=== PATIENT | female | born 1990 | race Caucasian/White ===

== ENCOUNTER 2017-10-18 21:03 | Emergency (ER) | payer OTHER ==
[2017-10-19] MEDS: SOD CHLORIDE 0.9% 1,000 ML IV (00:22)
[2017-10-19 00:28] LABS: ADD MAN DIFF? NO
[2017-10-19 00:29] LABS: ADD UMIC NO; UR ASCORBIC ACID NEGATIVE (NEGATIVE); UR BILIRUBIN (Dip) NEGATIVE (NEGATIVE); UR BLOOD (Dip) NEGATIVE (NEGATIVE); UR CLARITY CLEAR (CLEAR); UR COLOR YELLOW (YELLOW); UR GLUCOSE (Dip) NEGATIVE (NEGATIVE); UR KETONES (Dip) NEGATIVE (NEGATIVE); UR LEUKOCYTE ESTERASE (Dip) NEGATIVE Leu/ul (NEGATIVE); UR NITRITE (Dip) NEGATIVE (NEGATIVE); UR SPECIFIC GRAVITY (Dip) 1.011 (1.003-1.030); UR TOTAL PROTEIN (Dip) NEGATIVE (NEGATIVE); UR UROBILINOGEN (Dip) NEGATIVE (NEGATIVE)
[2017-10-19 00:33] LABS: BASOPHIL # 0.1 10^3/ul (0.0-0.1); BASOPHILS % 0.3 % (0.0-2.0); EOSINOPHILS # 0.4 10^3/ul (0.0-0.5); EOSINOPHILS % 2.4 % (0.0-7.0); HEMATOCRIT 44.3 % (37.0-47.0); HEMOGLOBIN 14.6 g/dl (12.0-16.0); LYMPHOCYTES # 4.6 10^3/ul (0.8-2.9); LYMPHOCYTES % 31.1 % (15.0-51.0); MEAN CORPUSCULAR HEMOGLOBIN 27.5 pg (29.0-33.0); MEAN CORPUSCULAR VOLUME 83.6 fl (82.0-101.0); MEAN PLATELET VOLUME 10.7 fl (7.4-10.4); MONOCYTE # 0.8 10^3/ul (0.3-0.9); MONOCYTES % 5.6 % (0.0-11.0); NEUTROPHIL # 8.9 10^3/ul (1.6-7.5); NEUTROPHILS % 60.3 % (39.0-77.0); PLATELET COUNT 301 10^3/UL (140-415); RED CELL DISTRIBUTION WIDTH 12.8 % (11.5-14.5)
[2017-10-19 00:33] LABS: WHITE BLOOD COUNT 14.7 10^3/ul (4.8-10.8)
== END 2017-10-19 02:21 | disposition home or self-care (01) ==
LOC: FTE 21:03
DX: O20.0 Threatened abortion (principal); Z3A.01 Less than 8 weeks gestation of pregnancy
CPT/HCPCS: 36415; 76801; 81003; 84702; 85025; 86900; 86901; 99285-25

== ENCOUNTER 2017-10-19 22:38 | Emergency (ER) | payer OTHER ==
[2017-10-20 01:37] LABS: ADD MAN DIFF? NO
[2017-10-20 01:40] LABS: WHITE BLOOD COUNT 13.3 10^3/ul (4.8-10.8)
[2017-10-20 01:40] LABS: BASOPHIL # 0.1 10^3/ul (0.0-0.1); BASOPHILS % 0.4 % (0.0-2.0); EOSINOPHILS # 0.4 10^3/ul (0.0-0.5); HEMATOCRIT 41.3 % (37.0-47.0); HEMOGLOBIN 13.9 g/dl (12.0-16.0); LYMPHOCYTES # 3.8 10^3/ul (0.8-2.9); LYMPHOCYTES % 28.4 % (15.0-51.0); MEAN CORPUSCULAR HEMOGLOBIN 28.1 pg (29.0-33.0); MEAN CORPUSCULAR HGB CONC 33.7 g/dl (32.0-37.0); MEAN CORPUSCULAR VOLUME 83.6 fl (82.0-101.0); MEAN PLATELET VOLUME 10.8 fl (7.4-10.4); MONOCYTE # 0.9 10^3/ul (0.3-0.9); MONOCYTES % 6.7 % (0.0-11.0); NEUTROPHIL # 8.2 10^3/ul (1.6-7.5); NEUTROPHILS % 61.3 % (39.0-77.0); PLATELET COUNT 288 10^3/UL (140-415); RED BLOOD COUNT 4.94 10^6/ul (4.20-5.40); RED CELL DISTRIBUTION WIDTH 12.6 % (11.5-14.5)
== END 2017-10-20 04:16 | disposition home or self-care (01) ==
LOC: FTE 22:38
DX: O20.0 Threatened abortion (principal); R10.2 Pelvic and perineal pain; Z3A.01 Less than 8 weeks gestation of pregnancy
CPT/HCPCS: 36415; 76801; 84702; 85025; 99284-25

== ENCOUNTER 2017-12-26 19:20 | Emergency (ER) | payer MEDICAID, OTHER ==
[2017-12-26] MEDS: METOCLOPRAMIDE 10 MG TAB PO (21:48)
[2017-12-26] MEDS: SOD CHLORIDE 0.9% 1,000 ML IV (21:49)
[2017-12-26 21:53] LABS: ADD UMIC NO; UR ASCORBIC ACID 20 mg/dL (NEGATIVE); UR BILIRUBIN (Dip) NEGATIVE (NEGATIVE); UR BLOOD (Dip) NEGATIVE (NEGATIVE); UR CLARITY CLEAR (CLEAR); UR COLOR YELLOW (YELLOW); UR GLUCOSE (Dip) NEGATIVE (NEGATIVE); UR KETONES (Dip) NEGATIVE (NEGATIVE); UR LEUKOCYTE ESTERASE (Dip) NEGATIVE Leu/ul (NEGATIVE); UR NITRITE (Dip) NEGATIVE (NEGATIVE); UR SPECIFIC GRAVITY (Dip) 1.009 (1.003-1.030); UR TOTAL PROTEIN (Dip) NEGATIVE (NEGATIVE); UR UROBILINOGEN (Dip) NEGATIVE (NEGATIVE)
[2017-12-26 22:16] LABS: ADD MAN DIFF? NO
[2017-12-26 22:22] LABS: WHITE BLOOD COUNT 13.1 10^3/ul (4.8-10.8)
[2017-12-26 22:22] LABS: BASOPHIL # 0.1 10^3/ul (0.0-0.1); BASOPHILS % 0.4 % (0.0-2.0); EOSINOPHILS # 0.3 10^3/ul (0.0-0.5); EOSINOPHILS % 2.6 % (0.0-7.0); HEMATOCRIT 36.9 % (37.0-47.0); HEMOGLOBIN 12.6 g/dl (12.0-16.0); LYMPHOCYTES # 3.2 10^3/ul (0.8-2.9); LYMPHOCYTES % 24.4 % (15.0-51.0); MEAN CORPUSCULAR HEMOGLOBIN 28.3 pg (29.0-33.0); MEAN CORPUSCULAR HGB CONC 34.1 g/dl (32.0-37.0); MEAN CORPUSCULAR VOLUME 82.9 fl (82.0-101.0); MEAN PLATELET VOLUME 11.3 fl (7.4-10.4); MONOCYTE # 0.9 10^3/ul (0.3-0.9); NEUTROPHIL # 8.6 10^3/ul (1.6-7.5); NEUTROPHILS % 65.2 % (39.0-77.0); PLATELET COUNT 284 10^3/UL (140-415); RED BLOOD COUNT 4.45 10^6/ul (4.20-5.40); RED CELL DISTRIBUTION WIDTH 13.4 % (11.5-14.5)
[2017-12-26 22:36] LABS: ALANINE AMINOTRANSFERASE 24 IU/L (13-69); ALBUMIN 3.7 g/dl (3.3-4.9); ALBUMIN/GLOBULIN RATIO 1.12; ALKALINE PHOSPHATASE 73 IU/L (42-121); ANION GAP 14 (8-16); ASPARTATE AMINO TRANSFERASE 18 IU/L (15-46); BILIRUBIN,INDIRECT 0.3 mg/dl (0-1.1); BILIRUBIN,TOTAL 0.3 mg/dl (0.2-1.3); BLOOD UREA NITROGEN 5 mg/dl (7-20); CALCIUM 9.3 mg/dl (8.4-10.2); CARBON DIOXIDE 24 mmol/L (21-31); CHLORIDE 104 mmol/L (97-110); CREATININE 0.44 mg/dl (0.44-1.00); GLUCOSE 84 mg/dl (70-220); POTASSIUM 4.1 mmol/L (3.5-5.1); SODIUM 138 mmol/L (135-144)
== END 2017-12-26 23:05 | disposition home or self-care (01) ==
LOC: FTE 19:20
DX: O99.282 Endocrine, nutritional and metabolic diseases complicating pregnancy, second trimester (principal); E86.0 Dehydration; Z3A.17 17 weeks gestation of pregnancy
CPT/HCPCS: 36415; 76805; 80053; 81003; 85025; 99285-25

== ENCOUNTER 2018-01-25 12:14 | Inpatient (IN) | payer OTHER ==
[2018-01-25] MEDS ORDERED: ONDANSETRON 4 MG INJ IV (14:00)
[2018-01-25] MEDS: LACTATED RINGER'S 1,000 ML IV (15:24)
[2018-01-25] MEDS: MAGNESIUM SULFATE 4 GM/100 ML 100 ML IV (15:30)
[2018-01-25] MEDS: TERBUTALINE 1 MG/ML INJ SC (15:32)
[2018-01-25 15:56] LABS: ADD MAN DIFF? NO
[2018-01-25 15:58] LABS: BASOPHILS % 0.2 % (0.0-2.0); EOSINOPHILS # 0.2 10^3/ul (0.0-0.5); EOSINOPHILS % 1.9 % (0.0-7.0); HEMATOCRIT 36.1 % (37.0-47.0); HEMOGLOBIN 12.2 g/dl (12.0-16.0); LYMPHOCYTES # 2.2 10^3/ul (0.8-2.9); LYMPHOCYTES % 19.9 % (15.0-51.0); MEAN CORPUSCULAR HEMOGLOBIN 28.8 pg (29.0-33.0); MEAN CORPUSCULAR HGB CONC 33.8 g/dl (32.0-37.0); MEAN CORPUSCULAR VOLUME 85.1 fl (82.0-101.0); MEAN PLATELET VOLUME 11.1 fl (7.4-10.4); MONOCYTE # 0.4 10^3/ul (0.3-0.9); MONOCYTES % 3.5 % (0.0-11.0); NEUTROPHIL # 8.1 10^3/ul (1.6-7.5); PLATELET COUNT 256 10^3/UL (140-415); RED BLOOD COUNT 4.24 10^6/ul (4.20-5.40); RED CELL DISTRIBUTION WIDTH 13.5 % (11.5-14.5)
[2018-01-25] MEDS: MAGNESIUM SULFATE 20 GM/500 ML 500 ML IV (16:02)
[2018-01-25 19:54] LABS: ADD UMIC NO; UR ASCORBIC ACID NEGATIVE (NEGATIVE); UR BILIRUBIN (Dip) NEGATIVE (NEGATIVE); UR BLOOD (Dip) NEGATIVE (NEGATIVE); UR CLARITY CLEAR (CLEAR); UR COLOR STRAW (YELLOW); UR GLUCOSE (Dip) NEGATIVE (NEGATIVE); UR KETONES (Dip) NEGATIVE (NEGATIVE); UR LEUKOCYTE ESTERASE (Dip) NEGATIVE Leu/ul (NEGATIVE); UR NITRITE (Dip) NEGATIVE (NEGATIVE); UR SPECIFIC GRAVITY (Dip) 1.008 (1.003-1.030); UR TOTAL PROTEIN (Dip) NEGATIVE (NEGATIVE); UR UROBILINOGEN (Dip) NEGATIVE (NEGATIVE)
[2018-01-25 21:23] LABS: AMPHETAMINE/METHAMPHETAMINE Negative (NEGATIVE); BARBITURATES Negative (NEGATIVE); BENZODIAZEPINES Negative (NEGATIVE); CANNABINOIDS Negative (NEGATIVE); COCAINE Negative (NEGATIVE); OPIATES Negative (NEGATIVE)
[2018-01-25] MEDS: INDOMETHACIN 25 MG PO (21:32)
[2018-01-25] MEDS: PROGESTERONE 100 MG CAP VAG (21:55)
[2018-01-26] MEDS: LACTATED RINGER'S 1,000 ML IV ×2 (00:13→12:20)
[2018-01-26] MEDS: INDOMETHACIN 25 MG PO ×4 (02:01→18:13)
[2018-01-26] MEDS: MAGNESIUM SULFATE 20 GM/500 ML 500 ML IV ×2 (02:09→12:23)
[2018-01-26] MEDS: ACETAMINOPHEN 325 MG TAB PO (02:14)
[2018-01-26 07:05] LABS: MAGNESIUM 5.3 mg/dl (1.7-2.5)
[2018-01-26] MEDS: PRENATAL VITAMIN PO (09:23)
[2018-01-26 13:24] LABS: MAGNESIUM 5.1 mg/dl (1.7-2.5)
[2018-01-26] MEDS: NIFEdipine 10 MG CAP PO (19:18)
[2018-01-26 19:56] LABS: MAGNESIUM 5.3 mg/dl (1.7-2.5)
[2018-01-26] MEDS: PROGESTERONE 100 MG CAP VAG (21:02)
[2018-01-27] MEDS: LACTATED RINGER'S 1,000 ML IV ×3 (00:27→08:29)
[2018-01-27] MEDS: INDOMETHACIN 25 MG PO ×3 (00:28→12:10)
[2018-01-27] MEDS: NIFEdipine 10 MG CAP PO ×3 (00:28→12:11)
[2018-01-27] MEDS: PRENATAL VITAMIN PO (09:10)
== END 2018-01-27 17:00 | disposition home or self-care (01) | DRG 782 ==
LOC: OBT 12:14 → L-D 12:15 → OBT 13:50 → L-D 13:50
PROVIDERS: Obstetrics & Gynecology
DX: O26.872 Cervical shortening, second trimester (principal); Z3A.21 21 weeks gestation of pregnancy
CPT/HCPCS: 76817; 80307; 81003; 83735; 85025; 87086

== ENCOUNTER 2018-02-04 18:17 | Inpatient (IN) | payer OTHER ==
[2018-02-04 20:39] LABS: ADD UMIC YES; UR ASCORBIC ACID 40 mg/dL (NEGATIVE); UR BILIRUBIN (Dip) NEGATIVE (NEGATIVE); UR BLOOD (Dip) NEGATIVE (NEGATIVE); UR CLARITY CLOUDY (CLEAR); UR COLOR YELLOW (YELLOW); UR GLUCOSE (Dip) NEGATIVE (NEGATIVE); UR KETONES (Dip) NEGATIVE (NEGATIVE); UR LEUKOCYTE ESTERASE (Dip) 3+ Leu/ul (NEGATIVE); UR MUCUS FEW /HPF (NONE SEEN); UR NITRITE (Dip) NEGATIVE (NEGATIVE); UR RBC 11 /HPF (0-5); UR SPECIFIC GRAVITY (Dip) 1.014 (1.003-1.030); UR SQUAMOUS EPITHELIAL CELL MODERATE /HPF (FEW); UR TOTAL PROTEIN (Dip) NEGATIVE (NEGATIVE); UR UROBILINOGEN (Dip) NEGATIVE (NEGATIVE); UR WBC 26 /HPF (0-5)
[2018-02-05] MEDS: MAGNESIUM SULFATE 4 GM/100 ML 100 ML IV (00:51)
[2018-02-05] MEDS: INDOMETHACIN 25 MG PO ×4 (02:01→19:43)
[2018-02-05] MEDS: MAGNESIUM SULFATE 20 GM/500 ML 500 ML IV ×3 (02:37→21:22)
[2018-02-05] MEDS: LACTATED RINGER'S 1,000 ML IV ×2 (02:39→18:24)
[2018-02-05] MEDS: AMPICILLIN 2 GM/NS (PMX) 100 ML IV (02:39)
[2018-02-05] MEDS: AMPICILLIN 1 GM/NS (PMX) 50 ML IV ×6 (03:30→23:46)
[2018-02-05 06:50] LABS: MAGNESIUM 4.5 mg/dl (1.7-2.5)
[2018-02-05] MEDS: DOCUSATE SODIUM 100 MG CAP PO (09:00)
[2018-02-05] MEDS: PRENATAL VITAMIN PO (09:00)
[2018-02-05] MEDS: CLOTRIMAZOLE 1% 30 GM CR TOP (09:00)
[2018-02-05] MEDS: BETAMET NA PHOS/AC(6 MG/ML) 5ML INJ IM (11:21)
[2018-02-05 12:24] LABS: MAGNESIUM 4.7 mg/dl (1.7-2.5)
[2018-02-05] MEDS: TERBUTALINE 1 MG/ML INJ SC (16:15)
[2018-02-05 18:08] LABS: MAGNESIUM 5.2 mg/dl (1.7-2.5)
[2018-02-05] MEDS ORDERED: CLOTRIMAZOLE 1% 45 GM VAG CR VAG (21:00)
[2018-02-05] MEDS ORDERED: PROGESTERONE 100 MG CAP VAG (21:00)
[2018-02-06] MEDS: INDOMETHACIN 25 MG PO ×4 (00:42→18:25)
[2018-02-06 01:51] LABS: MAGNESIUM 5.2 mg/dl (1.7-2.5)
[2018-02-06] MEDS: AMPICILLIN 1 GM/NS (PMX) 50 ML IV ×4 (03:38→15:25)
[2018-02-06] MEDS: LACTATED RINGER'S 1,000 ML IV ×3 (04:10→23:19)
[2018-02-06] MEDS: MAGNESIUM SULFATE 20 GM/500 ML 500 ML IV ×2 (06:33→17:04)
[2018-02-06 07:19] LABS: MAGNESIUM 5.4 mg/dl (1.7-2.5)
[2018-02-06] MEDS ORDERED: TERBUTALINE 1 MG/ML INJ SC (09:00)
[2018-02-06] MEDS: DOCUSATE SODIUM 100 MG CAP PO (09:34)
[2018-02-06] MEDS: PRENATAL VITAMIN PO (09:34)
[2018-02-06] MEDS: BETAMET NA PHOS/AC(6 MG/ML) 5ML INJ IM (11:11)
[2018-02-06] MEDS ORDERED: MAGNESIUM HYDROXIDE 30ML CUP PO (16:00)
[2018-02-06] MEDS ORDERED: SENNA TAB PO (16:00)
[2018-02-06 16:28] LABS: MAGNESIUM 5.2 mg/dl (1.7-2.5)
[2018-02-07] MEDS: INDOMETHACIN 25 MG PO ×5 (00:04→23:41)
[2018-02-07] MEDS: MAGNESIUM SULFATE 20 GM/500 ML 500 ML IV ×4 (00:43→21:41)
[2018-02-07 01:42] LABS: MAGNESIUM 5.4 mg/dl (1.7-2.5)
[2018-02-07 06:58] LABS: MAGNESIUM 5.3 mg/dl (1.7-2.5)
[2018-02-07] MEDS: PRENATAL VITAMIN PO (09:15)
[2018-02-07] MEDS: SENNA TAB PO (09:16)
[2018-02-07] MEDS: MAGNESIUM HYDROXIDE 30ML CUP PO (09:22)
[2018-02-07] MEDS: LACTATED RINGER'S 1,000 ML IV (11:58)
[2018-02-07 13:06] LABS: MAGNESIUM 4.7 mg/dl (1.7-2.5)
[2018-02-07 18:33] LABS: MAGNESIUM 4.8 mg/dl (1.7-2.5)
[2018-02-07] MEDS ORDERED: TERBUTALINE 1 ML (19:05)
[2018-02-07] MEDS: TERBUTALINE 1 MG/ML INJ SC (19:12)
[2018-02-08] MEDS: CEFAZOLIN 2 GM/50 ML (PMX) 50 ML IVPB ×2 (00:30→16:21)
[2018-02-08] MEDS ORDERED: FENTAnyl 50 MCG/ML VIAL (01:29)
[2018-02-08] MEDS ORDERED: ONDANSETRON 4 MG INJ (01:29)
[2018-02-08] MEDS ORDERED: morphine SULFATE/PF (10 MG/10 ML) INJ (01:35)
[2018-02-08] MEDS: ONDANSETRON 4 MG INJ IV (02:20)
[2018-02-08] MEDS ORDERED: FENTAnyl 50 MCG/ML VIAL IV (02:30)
[2018-02-08] MEDS ORDERED: HYDROmorphONE 1 MG/5 ML IV SYRINGE IV ×3 (02:30)
[2018-02-08] MEDS ORDERED: HYDROmorphONE 0.5 MG/0.5 ML SYG IV (02:30)
[2018-02-08] MEDS ORDERED: OXYTOCIN 30 UNITS/LR 500 ML IV (02:30)
[2018-02-08] MEDS ORDERED: NALOXONE (0.4 MG/ML) INJ IV (02:30)
[2018-02-08] MEDS ORDERED: METHYLERGONOVINE 0.2 MG TAB PO (02:30)
[2018-02-08] MEDS ORDERED: MISOPROSTOL 200 MCG TAB PR (02:30)
[2018-02-08] MEDS ORDERED: CARBOPROST 250 MCG INJ IM (02:30)
[2018-02-08] MEDS ORDERED: METOCLOPRAMIDE 10 MG INJ IV (02:30)
[2018-02-08] MEDS ORDERED: METHYLERGONOVINE 0.2 MG INJ IM (02:30)
[2018-02-08] MEDS ORDERED: ONDANSETRON 4 MG INJ IV (02:30)
[2018-02-08] MEDS ORDERED: LANOLIN 7 GM TUBE TOP (02:30)
[2018-02-08] MEDS ORDERED: DIPHENHYDRAMINE 50 MG INJ IV ×2 (02:30)
[2018-02-08] MEDS: OXYTOCIN 30 UNITS/LR 500 ML IV (02:39)
[2018-02-08] MEDS: HYDROmorphONE 0.5 MG/0.5 ML SYG IV ×2 (02:57→20:05)
[2018-02-08 03:02] LABS: ADD MAN DIFF? NO
[2018-02-08 03:03] LABS: BASOPHILS % 0.2 % (0.0-2.0); EOSINOPHILS % 0.2 % (0.0-7.0); HEMATOCRIT 34.3 % (37.0-47.0); LYMPHOCYTES % 12.3 % (15.0-51.0); MEAN CORPUSCULAR HEMOGLOBIN 28.1 pg (29.0-33.0); MEAN CORPUSCULAR HGB CONC 32.1 g/dl (32.0-37.0); MEAN CORPUSCULAR VOLUME 87.5 fl (82.0-101.0); MEAN PLATELET VOLUME 10.3 fl (7.4-10.4); MONOCYTE # 1.2 10^3/ul (0.3-0.9); MONOCYTES % 7.6 % (0.0-11.0); NEUTROPHIL # 12.9 10^3/ul (1.6-7.5); PLATELET COUNT 258 10^3/UL (140-415); RED BLOOD COUNT 3.92 10^6/ul (4.20-5.40); RED CELL DISTRIBUTION WIDTH 13.1 % (11.5-14.5)
[2018-02-08 03:03] LABS: WHITE BLOOD COUNT 16.3 10^3/ul (4.8-10.8)
[2018-02-08] MEDS: FENTAnyl 50 MCG/ML VIAL IV ×2 (03:19→05:08)
[2018-02-08 03:24] LABS: INR 0.92; PROTIME 12.4 Sec (11.9-14.9)
[2018-02-08] MEDS: KETOROLAC 30 MG INJ IV ×4 (04:12→22:53)
[2018-02-08 04:23] LABS: HEPATITIS B SURFACE ANTIGEN NEGATIVE (NEGATIVE)
[2018-02-08] MEDS ORDERED: OXYTOCIN 30 UNITS/LR 500 ML BAG IV (07:00)
[2018-02-08] MEDS ORDERED: PHENYLephrine (100 MCG/ML) 10ML SYG (07:00)
[2018-02-08] MEDS ORDERED: CHLOROPROCAINE 3% (MPF) 20 ML INJ (07:00)
[2018-02-08] MEDS: LACTATED RINGER'S 1,000 ML IV ×2 (12:08→20:52)
[2018-02-08] MEDS ORDERED: OXYCODONE/ACETAMINOPHEN (5/325) TAB PO (15:30)
[2018-02-08] MEDS: IBUPROFEN 800 MG TAB PO ×2 (16:06→17:05)
[2018-02-08] MEDS: CLINDAMYCIN 150 MG CAP PO (18:35)
[2018-02-08 21:57] LABS: RAPID PLASMA REAGIN NONREACTIVE (NR)
[2018-02-09] MEDS: CEFAZOLIN 2 GM/50 ML (PMX) 50 ML IVPB ×2 (00:23→08:42)
[2018-02-09] MEDS: CLINDAMYCIN 150 MG CAP PO ×5 (00:27→23:36)
[2018-02-09] MEDS ORDERED: IBUPROFEN 600 MG TAB PO (02:30)
[2018-02-09] MEDS: KETOROLAC 30 MG INJ IV (05:48)
[2018-02-09] MEDS: IBUPROFEN 800 MG TAB PO ×4 (08:42→21:10)
[2018-02-09 08:52] LABS: ADD MAN DIFF? NO
[2018-02-09 09:07] LABS: WHITE BLOOD COUNT 12.3 10^3/ul (4.8-10.8)
[2018-02-09 09:07] LABS: BASOPHIL # 0.1 10^3/ul (0.0-0.1); BASOPHILS % 0.4 % (0.0-2.0); EOSINOPHILS # 0.2 10^3/ul (0.0-0.5); EOSINOPHILS % 1.3 % (0.0-7.0); HEMATOCRIT 39.7 % (37.0-47.0); HEMOGLOBIN 12.7 g/dl (12.0-16.0); LYMPHOCYTES # 1.8 10^3/ul (0.8-2.9); LYMPHOCYTES % 14.6 % (15.0-51.0); MEAN CORPUSCULAR VOLUME 87.4 fl (82.0-101.0); MONOCYTE # 0.8 10^3/ul (0.3-0.9); MONOCYTES % 6.4 % (0.0-11.0); NEUTROPHIL # 9.4 10^3/ul (1.6-7.5); NEUTROPHILS % 76.5 % (39.0-77.0); PLATELET COUNT 292 10^3/UL (140-415); RED BLOOD COUNT 4.54 10^6/ul (4.20-5.40); RED CELL DISTRIBUTION WIDTH 13.2 % (11.5-14.5)
[2018-02-09] MEDS: LACTATED RINGER'S 1,000 ML IV ×4 (10:11→18:11)
[2018-02-09] MEDS: OXYCODONE/ACETAMINOPHEN (5/325) TAB PO ×3 (12:15→23:31)
[2018-02-09] MEDS: SENNA TAB PO (17:47)
[2018-02-10] MEDS: CLINDAMYCIN 150 MG CAP PO ×4 (06:16→23:44)
[2018-02-10] MEDS: OXYCODONE/ACETAMINOPHEN (5/325) TAB PO (06:20)
[2018-02-10 08:44] LABS: ADD MAN DIFF? NO
[2018-02-10 08:50] LABS: BASOPHIL # 0.1 10^3/ul (0.0-0.1); BASOPHILS % 0.6 % (0.0-2.0); EOSINOPHILS # 0.5 10^3/ul (0.0-0.5); EOSINOPHILS % 4.9 % (0.0-7.0); HEMATOCRIT 36.3 % (37.0-47.0); LYMPHOCYTES # 2.1 10^3/ul (0.8-2.9); MEAN CORPUSCULAR HEMOGLOBIN 28.8 pg (29.0-33.0); MEAN CORPUSCULAR HGB CONC 33.1 g/dl (32.0-37.0); MEAN CORPUSCULAR VOLUME 87.1 fl (82.0-101.0); MONOCYTES % 10.1 % (0.0-11.0); NEUTROPHIL # 6.5 10^3/ul (1.6-7.5); NEUTROPHILS % 63.1 % (39.0-77.0); PLATELET COUNT 285 10^3/UL (140-415); RED BLOOD COUNT 4.17 10^6/ul (4.20-5.40); RED CELL DISTRIBUTION WIDTH 13.2 % (11.5-14.5)
[2018-02-10 08:50] LABS: WHITE BLOOD COUNT 10.3 10^3/ul (4.8-10.8)
[2018-02-10] MEDS: IBUPROFEN 800 MG TAB PO ×4 (09:07→21:06)
[2018-02-10] MEDS: MAGNESIUM HYDROXIDE 30ML CUP PO (09:07)
[2018-02-10] MEDS: SENNA TAB PO (09:08)
[2018-02-10] MEDS: HYDROCODONE/APAP (5/325) TAB PO (22:31)
[2018-02-11] MEDS: CLINDAMYCIN 150 MG CAP PO ×2 (05:51→11:53)
[2018-02-11] MEDS: OXYCODONE/ACETAMINOPHEN (5/325) TAB PO (06:07)
[2018-02-11] MEDS: MEASLES,MUMPS,RUBELLA VACCINE INJ SC* (09:00)
[2018-02-11] MEDS: IBUPROFEN 800 MG TAB PO ×2 (09:10→14:41)
[2018-02-11] MEDS: DIPHTH/TET/ACEL PERTUSS (ADULT) 0.5 ML VIAL IM* (11:53)
== END 2018-02-11 17:57 | disposition home or self-care (01) | DRG 765 ==
LOC: OBT 18:17 → L-D 02-08 00:44 → OBT 23:01 → L-D 02-08 02:16 → PP1 02-08 15:00
PROC: 10D00Z0 Extraction of Products of Conception, High, Open Approach (ICD-10-PCS; principal; 2018-02-08)
DX: O60.12X0 Preterm labor second trimester with preterm delivery second trimester, not applicable or unspecified (principal); O32.1XX0 Maternal care for breech presentation, not applicable or unspecified; O34.32 Maternal care for cervical incompetence, second trimester; O26.873 Cervical shortening, third trimester; O69.0XX0 Labor and delivery complicated by prolapse of cord, not applicable or unspecified; Z3A.22 22 weeks gestation of pregnancy; Z37.0 Single live birth
CPT/HCPCS: 76815; 76817; 81001; 83735; 85025; 85610; 85730; 86592; 86850; 86900; 86901; 87086; 87340; 88307; 90715; 99464; J2400

== ENCOUNTER 2018-03-15 19:32 | Emergency (ER) | payer OTHER ==
[2018-03-15 21:21] LABS: URINE PH (Dip) POC 6.5 (5.0-8.5)
[2018-03-15 21:21] LABS: URINE BLOOD (Dip) POC 3+ (NEGATIVE); URINE GLUCOSE (Dip) POC Negative (NEGATIVE); URINE KETONES (Dip) POC Negative (NEGATIVE); URINE LEUKOCYTE EST (Dip) POC Trace (NEGATIVE); URINE NITRITE (Dip) POC Negative (NEGATIVE); URINE TOTAL PROTEIN POC 1+ (NEGATIVE)
[2018-03-15] MEDS: ACETAMINOPHEN 325 MG TAB PO (21:22)
[2018-03-15] MEDS: SOD CHLORIDE 0.9% 1,000 ML IV (21:22)
[2018-03-15] MEDS: ONDANSETRON 4 MG INJ IV (21:22)
[2018-03-15 21:35] LABS: ADD MAN DIFF? NO
[2018-03-15 21:37] LABS: BASOPHILS % 0.4 % (0.0-2.0); EOSINOPHILS # 0.5 10^3/ul (0.0-0.5); EOSINOPHILS % 4.5 % (0.0-7.0); HEMATOCRIT 39.2 % (37.0-47.0); HEMOGLOBIN 12.9 g/dl (12.0-16.0); LYMPHOCYTES # 3.6 10^3/ul (0.8-2.9); LYMPHOCYTES % 35.5 % (15.0-51.0); MEAN CORPUSCULAR HEMOGLOBIN 27.8 pg (29.0-33.0); MEAN CORPUSCULAR HGB CONC 32.9 g/dl (32.0-37.0); MEAN CORPUSCULAR VOLUME 84.5 fl (82.0-101.0); MEAN PLATELET VOLUME 11.2 fl (7.4-10.4); MONOCYTE # 0.7 10^3/ul (0.3-0.9); MONOCYTES % 6.7 % (0.0-11.0); NEUTROPHIL # 5.3 10^3/ul (1.6-7.5); NEUTROPHILS % 52.7 % (39.0-77.0); PLATELET COUNT 293 10^3/UL (140-415); RED BLOOD COUNT 4.64 10^6/ul (4.20-5.40); RED CELL DISTRIBUTION WIDTH 12.4 % (11.5-14.5)
[2018-03-15 21:56] LABS: ALANINE AMINOTRANSFERASE 35 IU/L (13-69); ALBUMIN 4.2 g/dl (3.3-4.9); ALBUMIN/GLOBULIN RATIO 1.27; ALKALINE PHOSPHATASE 88 IU/L (42-121); ANION GAP 14 (8-16); ASPARTATE AMINO TRANSFERASE 49 IU/L (15-46); BILIRUBIN,INDIRECT 0.2 mg/dl (0-1.1); BILIRUBIN,TOTAL 0.2 mg/dl (0.2-1.3); BLOOD UREA NITROGEN 13 mg/dl (7-20); CALCIUM 9.1 mg/dl (8.4-10.2); CARBON DIOXIDE 26 mmol/L (21-31); CHLORIDE 105 mmol/L (97-110); CREATININE 0.68 mg/dl (0.44-1.00); GLUCOSE 93 mg/dl (70-220); POTASSIUM 4.1 mmol/L (3.5-5.1); SODIUM 141 mmol/L (135-144); TOTAL PROTEIN 7.5 g/dl (6.1-8.1)
[2018-03-15 21:57] LABS: INR 0.89; PROTIME 12.1 Sec (11.9-14.9); PT RATIO 0.9
[2018-03-15 21:58] LABS: PARTIAL THROMBOPLASTIN TIME 30.2 Sec (25.0-35.0)
[2018-03-15 22:11] LABS: ADD UMIC YES; UR ASCORBIC ACID NEGATIVE (NEGATIVE); UR BILIRUBIN (Dip) NEGATIVE (NEGATIVE); UR BLOOD (Dip) 3+ mg/dL (NEGATIVE); UR CLARITY SLIGHTLY CLOUDY (CLEAR); UR COLOR YELLOW (YELLOW); UR GLUCOSE (Dip) NEGATIVE (NEGATIVE); UR KETONES (Dip) NEGATIVE (NEGATIVE); UR LEUKOCYTE ESTERASE (Dip) TRACE Leu/ul (NEGATIVE); UR NITRITE (Dip) NEGATIVE (NEGATIVE); UR RBC > 182 /HPF (0-5); UR SPECIFIC GRAVITY (Dip) 1.019 (1.003-1.030); UR SQUAMOUS EPITHELIAL CELL FEW /HPF (FEW); UR TOTAL PROTEIN (Dip) 1+ mg/dl (NEGATIVE); UR UROBILINOGEN (Dip) 1+ mg/dL (NEGATIVE); UR WBC 24 /HPF (0-5)
== END 2018-03-16 00:29 | disposition home or self-care (01) ==
LOC: FTE 03-16 00:29
DX: O72.2 Delayed and secondary postpartum hemorrhage (principal)
CPT/HCPCS: 36415; 76856; 80053; 81001; 81003; 85025; 85610; 85730; 86850; 86900; 86901; 96374; 99285-25

== ENCOUNTER 2018-04-10 20:34 | Emergency (ER) | payer SELFPAY, OTHER | END 2018-04-10 23:00 | disposition left against medical advice (07) | LOC: FTE 20:34 | DX: Z53.21 Procedure and treatment not carried out due to patient leaving prior to being seen by health care provider (principal) ==